=== PATIENT | female | born 1975 | race Caucasian/White ===

== ENCOUNTER → 2017-04-01 | Outpatient (REF) | payer OTHER ==
[2017-04-01 20:17] LABS: ERYTHROCYTE SEDIMENTATION RATE 18 mm/hr (0-20)
[2017-04-01 20:44] LABS: RHEUMATOID FACTOR QUANT < 10.0 IU/ML (0-15.0)
[2017-04-01 20:51] LABS: FOLATE 7.9 NG/ML; VITAMIN B12 LEVEL 307 PG/ML
[2017-04-07 08:06] LABS: ANTI THROMBIN 3 ANTIGEN IMMUNO 128 % (72-124); ANTI THROMBIN 3 FUNCT ACTIVITY 132 % (75-135); ANTINUCLEAR ANTIBODIES DIRECT Negative (Negative); CARDIOLIPIN IGA ANTIBODY <9 APL U/mL (0-11); CARDIOLIPIN IGG ANTIBODY <9 GPL U/mL (0-14); CARDIOLIPIN IGM ANTIBODY <9 MPL U/mL (0-12); PROTEIN C FUNCTIONAL ACTIVITY 141 % (73-180); PROTEIN S FUNCTIONAL ACTIVITY 94 % (63-140); VITAMIN B1 LEVEL WHOLE BLOOD 144.9 nmol/L (66.5-200.0); VITAMIN B6,PYRIDOXAL PHOSPHATE 7.5 ug/L (2.0-32.8); VITAMIN E LEVEL 7.9 mg/L (5.3-16.8)
[2017-04-07 10:15] LABS: DRVV SCREEN 39.3 SEC
[2017-04-07 10:38] LABS: PTT LUPUS TYPE ANTICOAG SCREEN 0.9 (0-1.2)
== END ==
LOC: M LABNEURO 11:13
DX: I69.311 Memory deficit following cerebral infarction (principal)
CPT/HCPCS: 82746